=== PATIENT | female | born 1925 | race Caucasian/White ===

== ENCOUNTER 2017-03-04 12:18 | Inpatient (IN) | payer MEDICARE, MEDICAID ==
[~2017-03-04] VITALS: Ht 157.5 cm; Wt 50.8 kg
[~2017-03-04 12:18] MED LIST: AML5T PO; ASPI81TA27 PO; CARV6.2551 PO; CHOL20007 PO; CYAN100023 PO; HYDR-2652 PO; INSDRIP IV; LOSA50TA6 PO; OME20T PO; ONDA4TAB5 PO; PROM25TA5 PO; SEVE800T8 PO; SIMV-8 PO
[2017-03-04 13:05] LABS: Basophils # (auto) 0.1 uL; Basophils % (auto) 0.8 % (0.0-2.0); DEFINITIVE VIEW TRANSMISSION; Eosinophils # (auto) 0.2 uL; Eosinophils % (auto) 2.5 % (0.0-7.0); Hematocrit 34.7 % (36.0-46.0); Hemoglobin 11.6 g/dL (12.2-16.2); Mean Corpuscular Hemoglobin 34.2 pg (28.0-32.0); Mean Corpuscular Hgb Conc. 33.5 g/dL (32.0-36.0); Mean Corpuscular Volume 102.1 fL (80.0-100.0); Mean Platelet Volume 7.6 fL (7.4-10.4); Monocytes # (auto) 0.4 uL; Monocytes % (auto) 5.6 % (0.0-12.0); Neutrophils # (auto) 5.6 uL; Neutrophils % (auto) 77.1 % (37.0-80.0); Platelet Count (auto) 304 10^3/uL (140-450); Red Cell Distribution Width 14.6 % (11.6-16.0); White Blood Cell 7.2 10^3/uL (4.4-10.8)
[2017-03-04 13:29] LABS: Albumin 3.4 g/dL (3.4-5.0); Anion Gap 7 (5-15); Aspartate Aminotransferase 16 U/L (15-37); BUN/Creatinine Ratio 8.9; Blood Urea Nitrogen 24 mg/dL (7-18); Calcium 8.1 mg/dL (8.5-10.1); Carbon Dioxide 33 mmol/L (21-32); Chloride 99 mmol/L (98-107); GFR African American 21 mL/min; GFR Non-African American 18 mL/min; Glucose 220 mg/dL (74-106); Magnesium 2.1 mg/dL (1.6-2.6); Potassium 4.2 mmol/L (3.5-5.1); Sodium 139 mmol/L (136-145)
[2017-03-04 13:34] LABS: Alkaline Phosphatase 128 U/L (45-117); Bilirubin, Total 0.4 mg/dL (0.2-1.0); Total Protein 6.7 g/dL (6.4-8.2)
[2017-03-04] MEDS ORDERED: MORPHINE SULF INJ 2 MG/ML SYRINGE 1ML IM ONE (16:00)
[2017-03-04] MEDS ORDERED: METOCLOPRAMIDE HCL 5MG/ml INJ 2ml VIAL IV ONE (16:30)
[2017-03-04] MEDS ORDERED: MORPHINE SULF INJ 2 MG/ML SYRINGE 1ML IV ONE (16:45)
[2017-03-04 17:09] LABS: B-Type Natriuretic Peptide 762.56 pg/mL (0-100); Temperature: 23.5 C (20.0-25.0)
[2017-03-04] MEDS ORDERED: DOCUSATE SOD 100 MG CAP PO PRN (17:30)
[2017-03-04] MEDS ORDERED: TEMAZEPAM 15 MG CAP PO PRN (17:30)
[2017-03-04] MEDS ORDERED: ACETAMINOPHEN 325 MG TAB PO PRN (17:30)
[2017-03-04] MEDS ORDERED: ASPirin-EC 81 mg tab PO ONE (17:30)
[2017-03-04] MEDS ORDERED: NITROGLYCERIN 0.4 MG SL TAB SL PRN (17:30)
[2017-03-04] MEDS ORDERED: MORPHINE SULF INJ 2 MG/ML SYRINGE 1ML IV PRN ×2 (17:30)
[2017-03-04] MEDS ORDERED: HYDROcodone-ACET 5/325MG TAB PO PRN (17:30)
[2017-03-04] MEDS ORDERED: ONDANSETRON HCL 4 MG/2 ML VIAL IV PRN (17:30)
[2017-03-04] MEDS: MULTIPLE VITAMIN TAB PO SCH (18:44)
[2017-03-04] MEDS: FAMOTIDINE 20 MG TAB PO SCH (18:44)
[2017-03-04] MEDS: FUROSEMIDE 20 MG/2 ML VIAL IV SCH (18:44)
[2017-03-04 20:00] VITALS: BP 141/37
[2017-03-04] MEDS: SEVELAMER 800 MG TAB PO SCH (20:11)
[2017-03-04 22:00] VITALS: BP 141/37
[2017-03-04] MEDS: SODIUM CHLOR 0.9% PF (SALINE LOCK) 10ML VIAL IV SCH (22:11)
[2017-03-04] MEDS: ATORVASTATIN 20 MG TAB PO SCH (22:11)
[2017-03-04] MEDS: hydrALAZINE HCL 25 MG TAB PO SCH (22:11)
[2017-03-04] MEDS: CARVEDILOL 3.125 MG TAB PO SCH (22:14)
[2017-03-04 23:05] VITALS: BP 141/37
[2017-03-04 23:49] VITALS: BP 141/37
[2017-03-05] MEDS ORDERED: DEXTROSE (50%) 50ML SYRG IV PRN (00:45)
[2017-03-05 05:00] VITALS: BP 155/41
[2017-03-05] MEDS: SODIUM CHLOR 0.9% PF (SALINE LOCK) 10ML VIAL IV SCH ×3 (05:47→21:40)
[2017-03-05] MEDS: hydrALAZINE HCL 25 MG TAB PO SCH ×3 (05:47→21:39)
[2017-03-05] MEDS: FUROSEMIDE 20 MG/2 ML VIAL IV SCH ×2 (05:47→17:38)
[2017-03-05] MEDS: ACCU-CHEK COMFORT CURVE STRIP VI SCH ×4 (05:48→23:57)
[2017-03-05 05:51] LABS: Basophils # (auto) 0 uL; Basophils % (auto) 0.7 % (0.0-2.0); DEFINITIVE VIEW TRANSMISSION; Eosinophils # (auto) 0.2 uL; Eosinophils % (auto) 3.1 % (0.0-7.0); Hematocrit 29.2 % (36.0-46.0); Hemoglobin 9.7 g/dL (12.2-16.2); Lymphocytes # (auto) 1.4 uL; Lymphocytes % (auto) 28.1 % (10.0-50.0); Mean Corpuscular Hemoglobin 33.8 pg (28.0-32.0); Mean Corpuscular Hgb Conc. 33.2 g/dL (32.0-36.0); Mean Corpuscular Volume 101.7 fL (80.0-100.0); Mean Platelet Volume 7.2 fL (7.4-10.4); Monocytes # (auto) 0.6 uL; Monocytes % (auto) 12.7 % (0.0-12.0); Neutrophils # (auto) 2.8 uL; Neutrophils % (auto) 55.4 % (37.0-80.0); Platelet Count (auto) 255 10^3/uL (140-450); Red Cell Distribution Width 14.4 % (11.6-16.0); White Blood Cell 5.1 10^3/uL (4.4-10.8)
[2017-03-05] MEDS: InsuLIN REG 1unit/0.01ml Soln (100units/ml) SC SCH ×4 (05:53→23:58)
[2017-03-05 06:11] LABS: Albumin 2.8 g/dL (3.4-5.0); BUN/Creatinine Ratio 9.5; Calcium 8.2 mg/dL (8.5-10.1); Potassium 4.8 mmol/L (3.5-5.1)
[2017-03-05 06:13] LABS: Bilirubin, Total 0.4 mg/dL (0.2-1.0); Total Protein 5.7 g/dL (6.4-8.2)
[2017-03-05] MEDS: SEVELAMER 800 MG TAB PO SCH ×3 (08:31→18:24)
[2017-03-05 09:00] VITALS: BP 154/47
[2017-03-05] MEDS: CHOLECALCIFEROL (VITD3) 1,000 UNIT TAB PO SCH (09:46)
[2017-03-05] MEDS: CYANOCOBALAMIN 500 MCG TAB PO SCH (09:46)
[2017-03-05] MEDS: ASPirin-EC 81 mg tab PO SCH (09:46)
[2017-03-05] MEDS: CARVEDILOL 3.125 MG TAB PO SCH ×2 (09:47→21:40)
[2017-03-05] MEDS: MULTIPLE VITAMIN TAB PO SCH (09:50)
[2017-03-05] MEDS: FAMOTIDINE 20 MG TAB PO SCH (09:51)
[2017-03-05] MEDS: ENOXAPARIN SOD 30 MG/0.3 ML SYRINGE SC SCH (09:51)
[2017-03-05] MEDS: amLODIPine BESYLATE 5 MG TAB PO SCH (09:51)
[2017-03-05] MEDS ORDERED: PANTOPRAZOLE 40 MG TAB PO SCH (10:00)
[2017-03-05] MEDS ORDERED: LOSARTAN POTASSIUM 50 MG TAB PO SCH (10:00)
[2017-03-05 10:14] LABS: Urine Bilirubin Negative (Negative); Urine Blood Negative /uL (Negative); Urine Color Yellow (Yellow); Urine Glucose 2+ mg/dL (Normal); Urine Hyaline Cast FEW /lpf (0 - 2); Urine Ketone Negative (Negative); Urine Nitrite Negative (Negative); Urine RBC 4 /hpf (0 - 4); Urine Squamous Epithelial Cell FEW /hpf (<5); Urine Urobilinogen Normal (Negative)
[2017-03-05 13:00] VITALS: BP 145/69
[2017-03-05] MEDS ORDERED: SODIUM CHL 0.9% 1000 ML BAG XX ONE (14:45)
[2017-03-05] MEDS ORDERED: EPOETIN ALFA 2,000 UNIT/1 ML VIAL IV ONE (14:45)
[2017-03-05] MEDS ORDERED: EPOETIN ALFA 3,000 UNIT/1 ML VIAL IV ONE (14:45)
[2017-03-05 17:10] VITALS: BP 143/49
[2017-03-05] MEDS: ATORVASTATIN 20 MG TAB PO SCH (21:39)
[2017-03-05 22:00] VITALS: BP 154/53
[2017-03-05 23:00] VITALS: BP 142/68
[2017-03-06] VITALS (7 sets, daily range): BP systolic 123–155; BP diastolic 48–65
[2017-03-06] MEDS: SODIUM CHLOR 0.9% PF (SALINE LOCK) 10ML VIAL IV SCH ×3 (05:18→22:17)
[2017-03-06] MEDS: FUROSEMIDE 20 MG/2 ML VIAL IV SCH ×2 (05:19→17:58)
[2017-03-06] MEDS: hydrALAZINE HCL 25 MG TAB PO SCH (05:19)
[2017-03-06] MEDS: ACCU-CHEK COMFORT CURVE STRIP VI SCH ×4 (05:40→23:23)
[2017-03-06] MEDS: InsuLIN REG 1unit/0.01ml Soln (100units/ml) SC SCH ×4 (05:41→23:22)
[2017-03-06] MEDS ORDERED: amLODIPine BESYLATE 5 MG TAB PO ONE (09:00)
[2017-03-06] MEDS ORDERED: NITROGLYCERIN 0.2MG/HR TOPICAL PATCH TD ONE (09:00)
[2017-03-06] MEDS: LOSARTAN POTASSIUM 50 MG TAB PO SCH (10:00)
[2017-03-06] MEDS: METOPROLOL SUCCINATE XL 50 MG TAB PO SCH (10:00)
[2017-03-06] MEDS: amLODIPine BESYLATE 5 MG TAB PO SCH (10:00)
[2017-03-06] MEDS: SEVELAMER 800 MG TAB PO SCH ×3 (10:19→18:03)
[2017-03-06] MEDS: MULTIPLE VITAMIN TAB PO SCH (10:20)
[2017-03-06] MEDS: ASPirin-EC 81 mg tab PO SCH (10:20)
[2017-03-06] MEDS: CHOLECALCIFEROL (VITD3) 1,000 UNIT TAB PO SCH (10:20)
[2017-03-06] MEDS: FAMOTIDINE 20 MG TAB PO SCH (10:20)
[2017-03-06] MEDS: CYANOCOBALAMIN 500 MCG TAB PO SCH (10:20)
[2017-03-06] MEDS: ENOXAPARIN SOD 30 MG/0.3 ML SYRINGE SC SCH (10:24)
[2017-03-06] MEDS: ATORVASTATIN 20 MG TAB PO SCH (22:17)
[2017-03-07 05:13] VITALS: BP 150/60
[2017-03-07] MEDS: FUROSEMIDE 20 MG/2 ML VIAL IV SCH (05:53)
[2017-03-07] MEDS: SODIUM CHLOR 0.9% PF (SALINE LOCK) 10ML VIAL IV SCH ×2 (05:54→13:47)
[2017-03-07] MEDS: ACCU-CHEK COMFORT CURVE STRIP VI SCH ×2 (05:54→11:36)
[2017-03-07] MEDS: InsuLIN REG 1unit/0.01ml Soln (100units/ml) SC SCH ×2 (05:54→11:36)
[2017-03-07 07:30] VITALS: BP 150/60
[2017-03-07 08:00] VITALS: BP 190/62
[2017-03-07] MEDS: LOSARTAN POTASSIUM 50 MG TAB PO SCH (08:54)
[2017-03-07] MEDS: amLODIPine BESYLATE 5 MG TAB PO SCH (08:55)
[2017-03-07] MEDS: METOPROLOL SUCCINATE XL 50 MG TAB PO SCH (08:55)
[2017-03-07] MEDS: ENOXAPARIN SOD 30 MG/0.3 ML SYRINGE SC SCH ×2 (08:57→09:11)
[2017-03-07] MEDS: CYANOCOBALAMIN 500 MCG TAB PO SCH (08:57)
[2017-03-07] MEDS: MULTIPLE VITAMIN TAB PO SCH (08:57)
[2017-03-07] MEDS: FAMOTIDINE 20 MG TAB PO SCH (08:57)
[2017-03-07] MEDS: ASPirin-EC 81 mg tab PO SCH (08:57)
[2017-03-07] MEDS: SEVELAMER 800 MG TAB PO SCH ×2 (09:05→11:33)
[2017-03-07] MEDS ORDERED: NITROGLYCERIN 0.2MG/HR TOPICAL PATCH TD SCH (10:00)
[2017-03-07] MEDS ORDERED: amLODIPine BESYLATE 5 MG TAB PO SCH (10:00)
[2017-03-07] MEDS: CHOLECALCIFEROL (VITD3) 1,000 UNIT TAB PO SCH (11:33)
[2017-03-07 14:50] VITALS: BP 190/62
== END 2017-03-07 15:45 | disposition home or self-care (01) | DRG 291 ==
LOC: ER 12:20 → TELE 12:21 → TELE-EAST 20:28
PROVIDERS: ADMIT Internal Medicine; ATTEND Internal Medicine Pulmonary Disease
PROC: 5A1D00Z (ICD-10-PCS; principal; 2017-03-06)
DX: I13.2 Hypertensive heart and chronic kidney disease with heart failure and with stage 5 chronic kidney disease, or end stage renal disease (principal); I50.43 Acute on chronic combined systolic (congestive) and diastolic (congestive) heart failure; N18.6 End stage renal disease; D68.69 Other thrombophilia; I48.92 Unspecified atrial flutter; R07.89 Other chest pain; D63.8 Anemia in other chronic diseases classified elsewhere; E10.21 Type 1 diabetes mellitus with diabetic nephropathy; E78.5 Hyperlipidemia, unspecified; I25.10 Atherosclerotic heart disease of native coronary artery without angina pectoris; I27.2 Other secondary pulmonary hypertension; I35.1 Nonrheumatic aortic (valve) insufficiency; I48.91 Unspecified atrial fibrillation; I70.0 Atherosclerosis of aorta; Z79.4 Long term (current) use of insulin; Z79.899 Other long term (current) drug therapy; Z82.3 Family history of stroke; Z95.0 Presence of cardiac pacemaker
CPT/HCPCS: 36415; 71020; 80053; 81001; 82962; 83036; 83735; 83880; 84443; 84484; 85025; 87081; 87086; 93005; 93306; 96374; 96375; J1642; J1815; Q4081